=== PATIENT | female | born 1985 | race American Indian/Alaskan Native ===

== ENCOUNTER 2021-11-19 20:33 | Emergency (ER) | payer SELFPAY ==
[2021-11-19] MEDS ORDERED: MORPHINE 4 MG/1 ML INJ IM ONE (20:47)
[2021-11-19] MEDS ORDERED: KETOROLAC 30 MG/1 ML INJ IV ONE (21:48)
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
[2021-11-19 23:13] LABS: HCG Qualitative,Urine Negative (Negative)
[2021-11-20] MEDS ORDERED: TETANUS,DIPH,PERTUSS(ACELL) VACCINE 0.5 ML SYRINGE IM ONE (00:49)
[2021-11-20 01:03] VITALS: BP 138/75
== END 2021-11-20 01:26 | disposition home or self-care (01) ==
LOC: ED 20:33
DX: S01.311A Laceration without foreign body of right ear, initial encounter (principal); S01.112A Laceration without foreign body of left eyelid and periocular area, initial encounter; Y04.8XXA Assault by other bodily force, initial encounter; Y93.89 Activity, other specified; Y92.89 Other specified places as the place of occurrence of the external cause; Y99.8 Other external cause status; Z79.899 Other long term (current) drug therapy
CPT/HCPCS: 12053; 70450; 70486; 72125; 81025; 90715; 96372; 96374; 99284; J1885; J2270